=== PATIENT | female | born 1975 | race Caucasian/White ===

== ENCOUNTER 2020-10-02 19:35 | Emergency (ER) | payer MEDICAID, OTHER ==
[~2020-10-02] VITALS: Ht 167.6 cm; Wt 81.6 kg
[2020-10-03] MEDS ORDERED: KETOROLAC TROMETH 60MG/2ML VIAL IM ONE (02:15)
[2020-10-03 06:32] VITALS: BP 146/96
== END 2020-10-03 03:40 | disposition home or self-care (01) ==
LOC: ER 19:35 → EDBD 19:35 → ER 10-03 03:40
DX: M25.511 Pain in right shoulder (principal); G89.29 Other chronic pain; I10 Essential (primary) hypertension; F32.9 Major depressive disorder, single episode, unspecified; Z88.0 Allergy status to penicillin
CPT/HCPCS: 96372; 99283; J1885